=== PATIENT | female | born 1945 | race Caucasian/White ===

== ENCOUNTER → 2020-01-16 11:15 | Outpatient (CLI) | payer MEDICARE, BC, OTHER | END | disposition home or self-care (01) | LOC: D.MAMMO 11:15 | PROVIDERS: ATTEND Family Medicine | DX: Z12.31 Encounter for screening mammogram for malignant neoplasm of breast (principal) ==

== ENCOUNTER 2020-11-13 11:11 | Day surgery (SDC) | payer MEDICARE, BC, OTHER ==
[~2020-11-13] VITALS: Ht 162.6 cm; Wt 81.8 kg
--- NOTE | ~2020-11-13 | OP ---
PATIENT NAME: MEHNAZ THAPA MEDICAL RECORD: [id number] :[birth year] LOCATION:D.CAT ADMISSION DATE: SURGEON: MEGAN MACK MD DATE OF OPERATION: 11/13/2020 PREOPERATIVE DIAGNOSIS: Sick sinus syndrome with pauses. POSTOPERATIVE DIAGNOSIS: Sick sinus syndrome with pauses. PROCEDURE: 1. Left subclavian vein dual lead pacemaker placement. 2. Fluoroscopic interpretation. SURGEON: Megan Mack M.D. COSURGEON: Indio Lambert M.D. REPORT OF OPERATION: The patient's left chest was prepped and draped in sterile fashion. A 20 mL of 1% lidocaine with epinephrine was infused into the surrounding tissues. A transverse incision was made on the left superior lateral chest and a subcutaneous pouch was made over the pectoral fascia. A needle was used to cannulate the patient's left subclavian vein. A guidewire was then advanced. Fluoroscopy was used to note that the wire was in good position advancing into the right heart through the superior vena cava. We then placed a 9 trocar over the wire and then placed the V lead through the trocar. The trocar was then removed and a new 7-Peruvian lead was placed over the wire. The wire and dilator were removed and the atrial lead was then inserted. At this point, Dr. Lambert tried to position the leads, but had a lot of trouble with manipulating the leads since they were going through one hole and there was only one trocar. At this point, we discontinued the leads and left the wire in place and placed a 9-Peruvian trocar over the wire followed by second wire placement through the 9-Peruvian trocar. The 9-Peruvian trocar was then removed and two 7-Peruvian trocars were placed over the indwelling wires. At this point, the atrial and ventricular leads were reinserted and at this point, they rested in the superior vena cava. Dr. Lambert then positioned the leads appropriately in the atrium and ventricle. Once there were noted to be resting in good position then these leads were sutured into place with 2-0 Ti-Cron. There was a significant amount of brisk flowing blood from the puncture sites. I then oversewed the tissues around the leads using a 2-0 chromic and a 3-0 Vicryl and this discontinued the bleeding. The leads were then affixed to the pacemaker. This pacemaker was placed into the subcutaneous pouch and sutured to the pectoral fascia with single interrupted 2-0 Ti-Cron. The wound bed was irrigated out with antibiotic solution. The subcutaneous tissues were reapproximated with interrupted 3-0 Vicryl and the skin was closed with running subcutaneous 5-0 Monocryl. COMPLICATIONS: None. CONDITION: Stable. ANESTHESIA: Local MAC. BLOOD LOSS: 250 mL. TRANSINT:[id number] Voice Confirmation ID: [id number] DOCUMENT ID: [id number] OPERATIVE REPORT [id number] MEHNAZ THAPA CHRISTIAN MD CC: [id number] DICTATION DATE: 11/13/20 1418 [facility] PROJECT MANAGER: 11/14/[address] [facility] 11/13/[address] [address]
--- NOTE | ~2020-11-13 | HEMODYNAMI ---
PATIENT:MEHNAZ THAPA MEDICAL RECORD: [id number] : 49 LOCATION:[facility] ADMISSION DATE: 11/13/20 Generatedon:114:24 Patient name: MEHNAZ THAPA Patient #: [id number] SSN: [id number] : 1945 Date of study: 11/13/2020 Page: Of Hemodynamic Procedure Report Patient Data Patient Demographics Procedure consent was obtained First Name: MEHNAZ Gender: Female Last Name: ELIER : 1945 Middle Initial: S Age: 75 year(s) Patient #: [id number] Race: SSN: [id number] Additional ID: [id number] Contact details [address]: [address] [place] [address] State: [place] City: [place] Zip code: [address] Past Medical History Allergies Allergen Reaction Date Comments Reported Other allergy 11/13/2020 N Admission Admission Data Admission Date: 11/13/2020 Admission Time: 11:11 Arrival Date: 11/13/2020 Arrival Time: 0:00 Admit Source: Other Insurance Payor: Medicare [facility] #: [id number] Height (in.): 64 BSA: 1.87 (m2) Height (cm.): 162.56 BMI: 30.72 (kg/m2) Weight (lbs.): 179 Weight (kg.): 81.19 Lab Results Lab Result Date: 11/13/2020 Lab Result Time: 0:00 Biochemistry Name Units Result Min Max BUN mg/dl 12 --(-*--)-- 7 18 Creatinine mg/dl 1.2 --(---*)-- 0.6 1.3 Procedure Procedure Types Cath Procedure Diagnostic Procedure PPM/ICD PPM Dual Implant Sedation Charges Moderate Sedation 10-24 minutes Moderate Sedation 55-69 minutes Procedure Description Procedure Date Procedure Date: 11/13/2020 Procedure Start Time: 13:17 Procedure Staff Name Function Indio White MD Performing Physician Rios Whitmore MD Assisting physician Denise Bro RT Scrub Lali Gambino RT Monitor Modesto Shelby RN Monitor Indication Bradycardia Procedure Data Cath Procedure Fluoroscopy Diagnostic fluoroscopy Total fluoroscopy Time: 8.5 time: 8.5 min min Diagnostic fluoroscopy Total fluoroscopy dose: dose: 116.35 mGy 116.35 mGy Estimated blood loss: 10 ml Procedure Complications No complications Procedure Medications Medication Administration Route Dosage Oxygen NC 2 l/min Lidocaine 1% added to field 20 Vancomycin I.V.P.B 1 g Vancomycin Topical 1 g Irrigation 0.9% NaCl I.V. Versed I.V. 1 mg Fentanyl I.V. 50 mcg Versed I.V. 1 mg Fentanyl I.V. 50 mcg Versed I.V. 1 mg Versed I.V. 1 mg Fentanyl I.V. 50 mcg 0.9% NaCl I.V. bolus 250 ml Hemodynamics Rest BSA: 1.87 (m2) O2 Consumption: Estimated: 170.98 (ml/min) O2 Consumption indexed : Estimated:91.43 (ml/min/m) Heart Rate: 70 (bpm) Snapshots Pre Cath Intra NCS Post Cath Vital Signs Time Heart Resp SPO2 NIBP (mmHg) Rhythm Pain Sedation Rate (ipm) (%) Status Level (bpm) 13:00:03 76 10 98 152/84(106) NSR 0 (11) 10(A) , No pain 13:04:23 69 10 99 141/73(102) NSR 0 (11) 10(A) , No pain 13:08:41 73 10 98 149/69(118) NSR 0 (11) 10(A) , No pain 13:13:01 70 10 95 132/70(99) NSR 0 (11) 10(A) , No pain 13:17:17 71 10 99 147/65(97) NSR 0 (11) 10(A) , No pain 13:21:37 72 11 98 142/68(109) NSR 0 (11) 10(A) , No pain 13:25:47 78 15 99 128/75(127) NSR 0 (11) 10(A) , No pain 13:43:24 87 10 98 90/65(84) NSR 0 (11) 10(A) , No pain 14:03:41 79 11 100 107/63(86) NSR 0 (11) 10(A) , No pain 14:07:50 88 9 100 105/51(82) NSR 0 (11) 10(A) , No pain 14:13:08 78 10 100 108/55(89) NSR 0 (11) 10(A) , No pain 14:17:16 78 10 100 104/58(84) NSR 0 (11) 10(A) , No pain Medications Time Medication Route Dose Verified Delivered Reason Notes Effective ness by by 12:59:48 Oxygen NC 2 Indio Buffie used for l/min Cindy Bourdeaux election judge 12:59:59 Lidocaine added 20ml Indio Buffie used for 1% to vial Cindy Boudreaux election judge field x 2 13:01:09 Vancomycin I.V.P.B 1 g Indio Buffie used for Cindy Boudreaux election judge 13:01:18 Vancomycin Topical 1 g Indio Buffie used for Irrigation Cindy Boudreaux election judge 13:01:46 0.9% NaCl I.V. kvo Indio Buffie Per ml/hr Cindy Boudreaux RN physician 13:06:28 Versed I.V. 1 mg Indio Buffie for Cindy Boudreaux RN sedation 13:06:35 Fentanyl I.V. 50 Indio Buffie for mcg Cindy Boudreaux RN sedation 13:11:01 Versed I.V. 1 mg Indio Buffie for Cindy Boudreaux RN sedation 13:11:04 Fentanyl I.V. 50 Indio Buffie for mcg Cindy Boudreaux RN sedation 13:17:08 Versed I.V. 1 mg Indio Buffie for Cindy Boudreaux RN sedation 13:26:49 Versed I.V. 1 mg Indio Buffie for Cindy Boudreaux RN sedation 13:27:24 Fentanyl I.V. 50 Indio Buffie for mcg Cindy Boudreaux RN sedation 13:44:24 0.9% NaCl I.V. 250 Indio Buffie Per bolus ml Cindy Boudreaux RN physician Procedure Log Time Note 12:27:09 Informed consent obtained and on chart 12:27:33 Diagnostic Cath Status : Elective 12:28:01 Indication : Bradycardia 12:28:14 Arrival Date: 11/13/2020 12:00:00 AM 12:28:15 Admit Source: Other 12:28:18 Insurance Payor : Medicare 12:28:46 Patient Height : 64 inches 12:28:50 Patient Weight : 179 lbs 12:28:57 ACC Patient presents with Stable Angina CCS Anginal Class 2--Slight limitation of ordinary activity. 12:29:03 Procedure Status PPM/ Gen Change/ Lead Revision/ Temp. 12:29:05 Time tracking: Regular hours (M-F 7:00 - 5:00) 12:29:09 Plan of Care:Hemodynamics will remain stable., Cardiac rhythm will remain stable., Comfort level will be maintained., Respiratory function will remain adequate., Patient/ family verbilizes understanding of procedure., Procedure tolerated without complication., Recovers from procedure without complications.. 12:29:17 H&P Date Dictated: 11/06/2020 Within 30 days and on chart.. 12:29:20 Family in waiting room. 12:29:22 Patient NPO since Midnight. 12:29:31 Patient allergic to Other allergyPCN 12:29:37 Alarms reviewed by R. N. 12:29:37 Sharps counted by scrub and verified by R.N. 12:29:43 Stress Test: no; N/A ? 12:44:12 Gil Boudreaux RN sent for patient. Start room use. 12:45:43 Lab Result : Creatinine 1.2 mg/dl 12:45:43 Lab Result : BUN 12 mg/dl 12:52:41 Patient received from Pre/Post Procedure Room to CCL 3 Alert and oriented. Tansferred to table in Supine position. 12:52:42 Warm blankets applied, and daisy hugger turned on for patient comfort. 12:52:42 Correct patient and procedure confirmed by team. 12:52:43 Correct patient and procedure confirmed by team. 12:52:44 ECG and BP/O2 sat monitors applied to patient. 12:58:58 Baseline sample Acquired. 12:58:58 Vital chart was started 12:59:07 Rhythm: sinus tachycardia 12:59:09 Full Disclosure recording started 12:59:11 Pre-procedure instructions explained to patient. 12:59:12 Pre-op teaching completed and patient verbalized understanding. 12:59:15 Is the patient allergic to Iodine/contrast media? No. 12:59:17 Was the patient premedicated? No 12:59:18 Is patient on blood thinner?No 12:59:19 Patient diabetic? No. 12:59:22 Previous problem with sedation/anesthesia? No ? 12:59:25 Snore? Yes 12:59:26 Sleep apnea? No 12:59:35 Deviated septum? No 12:59:36 Opens mouth fully? Yes 12:59:38 Sticks out tongue? Yes 12:59:41 Airway obstruction? No ? 12:59:45 Dentures? No ? 12:59:48 Oxygen 2 l/min NC was administered by Gil Boudreaux RN; used for procedure; Verbal order read back and verified. 12:59:48 Pre procedure: right dorsailis pedis pulse 2+ Normal; easily identifiable; not easily obliterated 12:59:50 Pre procedure: left dorsailis pedis pulse 2+ Normal; easily identifiable; not easily obliterated 12:59:59 Lidocaine 1% 20ml vial x 2 added to field was administered by Gil Boudreaux RN; used for procedure; Verbal order read back and verified. 13:00:07 IV patent on arrival in right forearm with 0.9% NaCl at KVO. 13:00:11 Lab results completed and on chart. 13:00:17 Left chest area was prepped with chlora-prep and draped in sterile fashion 13:01:09 Vancomycin 1 g I.V.P.B was administered by Gil Boudreaux RN; used for procedure; Verbal order read back and verified. 13:01:18 Vancomycin Irrigation 1 g Topical was administered by Gil Boudreaux RN; used for procedure; Verbal order read back and verified. 13:01:[address] Generator [id number] opened to sterile field. 13:01:46 0.9% NaCl kvo ml/hr I.V. was administered by Gil Boudreaux RN; Per physician; Verbal order read back and verified. 13:02:27 Use device set MARTINA PPM 13:02:28 2-0 Ticron Multipack ([id number]) opened to sterile field. 13:02:28 3-0 Vicryl Single Pack [id number] opened to sterile field. 13:02:29 5-0 Monocryl PS2 [id number] opened to sterile field. 13:02:29 Cautery Tip Mechanical Door Repairer opened to sterile field. 13:02:30 Cautery Pushbutton Pencil opened to sterile field. 13:02:30 Mepilex Dressing (529247) opened to sterile field. 13:02:34 Immobilizer Large opened to sterile field. 13:02:37 Medtronic 4074-52 PPM Lead opened to sterile field. 13:03:28 Medtronic 4574-45 PPM Lead opened to sterile field. 13:04:11 Physician arrived 13:04:12 --------ALL STOP TIME OUT------ 13:04:13 Final Timeout: patient, procedure, and site verified with staff and physician. All members of the team are in agreement. 13:04:15 Left chest site verified by team. 13:04:24 Fire Safety Assessment: A--An alcohol-based skin anteseptic being used preoperatively., E--There are other possible contributors. 13:04:31 Physical assessment completed. ASA score P 2 - A patient with mild systemic disease as per Indio White MD. 13:04:36 Sedation plan: IV Moderate Sedation Medication:Versed, Fentanyl 13:04:50 Medtronic printing supplies sales representative Bernardino Banuelos present for procedure. 13:05:01 Pre sharps counted by scrub and verified by RN: Sutures: 7; Sponges: 5; Stick needles: 2; Skin needles: 2; Blade: 1; Cautery: 1 13:05:03 Grounding pad site Left thigh. 13:05:04 Grounding pad site free from injury. 13:06:28 Versed 1 mg I.V. was administered by Gil Boudreaux RN; for sedation; Verbal order read back and verified. 13:06:35 Fentanyl 50 mcg I.V. was administered by Gli Boudreaux RN; for sedation; Verbal order read back and verified. 13:11:01 Versed 1 mg I.V. was administered by Gil Boudreaux RN; for sedation; Verbal order read back and verified. 13:11:04 Fentanyl 50 mcg I.V. was administered by Gil Boudreaux RN; for sedation; Verbal order read back and verified. 13:11:13 Incision made to left subclavicular area. 13:17:04 Lidocaine 1% was administered to left subclavicular area by Rios Whitmore MD . 13:17:08 Versed 1 mg I.V. was administered by Gil Boudreaux RN; for sedation; Verbal order read back and verified. 13:26:49 Versed 1 mg I.V. was administered by Gil Boudreaux RN; for sedation; Verbal order read back and verified. 13:27:24 Fentanyl 50 mcg I.V. was administered by Gil Boudreaux RN; for sedation; Verbal order read back and verified. 13:28:35 Generator pocket made/opened. 13:28:40 Left subclavian vein accessed with 9Fr Peel Away Sheath. 13:30:46 Ventricular lead inserted and advanced. 13:30:47 Atrial lead inserted and advanced. 13:37:26 Ventricular lead positioned. 13:44:24 0.9% NaCl 250 ml I.V. bolus was administered by Gil Boudreaux RN; Per physician; Verbal order read back and verified. 13:57:53 Atrial lead positioned. 13:57:57 Peel-a-way sheath was split and removed. 13:58:23 Ventricular lead attachment was completed with 2-0 ticron. 13:58:28 Atrial lead attachment was completed with 2-0 ticron. 13:58:35 PPM Dual was attached to lead(s) and inserted into pocket. 13:58:38 Generator was sutured in place with 2-0 ticron. 14:01:27 Device pocket was irrigated with Vancomycin. 14:01:32 Subcutaneous closure was completed with 3-0 vicryl plus. 14:08:08 Skin closure was completed with 5-0 monocryl. 14:08:35 Parameters-- Generator: Mode: DDDR. Lower Rate: 60bpm. Upper Rate: 120bpm. 14:09:04 Parameters--Ventricular P/R Wave: 10.8mV. Current: 0.1mA; Threshold: 0.3V; Impedence: 960OHMS. 14:09:19 Parameters--Atrial P/R Wave: 3.3mV. Current: 2.9mA; Threshold: 1.5V; Impedence: 583OHMS. 14:09:23 Lt Chest incision was dressed with Mepilex dressing. 14:16:57 Procedure ended.(Physican Out) 14:18:04 Fluoroscopy time 08.50 minutes. 14:18:08 Fluoroscopy dose: 116.35 mGy 14:18:08 Flurop Dose total: 116.35 14:18:15 Dose Area Product 1639.85 mGy/cm. 14:18:20 Sharps counted by scrub and verified by R.N. 14:18:22 Insertion/operative site no bleeding no hematoma. 14:18:24 Post Procedure Pulses reassessed and unchanged 14:18:27 Post procedure rhythm: paced 14:18:31 Estimated blood loss: 10 ml 14:19:09 Post procedure instruction explained to patient.Patient verbalizes understanding. 14:19:09 Patient needs reinforcement of post procedure teaching. 14:19:51 Procedure type changed to Cath procedure, Diagnostic procedure, PPM/ICD, PPM Dual Implant, Sedation Charges, Moderate Sedation 10-24 minutes, Moderate Sedation 55-69 minutes 14:19:53 Procedure and supply charges have been captured, reviewed, submitted and are correct. 14:19:59 Procedure Complication : No complications 14:20:02 Vital chart was stopped 14:20:07 Operative report dictated upon procedure completion. 14:20:07 See physician's report for complete and final results. 14:20:09 Report given to Pre/Post Procedure Room. 14:20:11 Patient transfered to Pre/Post Procedure Room with Stretcher. 14:20:26 End room use (Document Last) Device Usage Item Name Manufacture Quantity Catalog Hospital Part Current Minima l Lot# / Number Charge Number Stock Stock Serial# Code Medtronic Medtronic 1 [id number] [id number] [id number] [id number] EXP Generator 04-04-2022 [id number] 2-0 Ticron Ethicon 7 [id number] 62322 001269 5 Multipack ([id number]) 3-0 Vicryl Ethicon 1 [id number] 716997 088122 532000 5 Single Pack [id number] 5-0 Monocryl Ethicon 1 Y495G 388801 348171 155023 5 PS2 Y495G Cautery Tip Microtek 1 [id number] 563411 459293 698990 5 Mechanical Door Repairer [employer] Cautery Microtek 1 [id number] 843141 45414 316649 5 [employer] Pencil Mepilex Cardinal 1 966857 290647 589259 184061 5 [facility] ([id number]) Immobilizer Cardinal 1 [id number] 914552 211681 161967 5 [facility] Medtronic Medtronic 1 4074-52 644740 146256 705377 5 [id number] 4074-52 PPM EXP Lead 07-27-2022 Medtronic Medtronic 1 4574-45 007418 858245 668799 5 [id number] 4574-45 PPM EXP Lead 03-06-2022 Signature Audit [place] Stage Time Signature Unsigned Intra-Procedure 11/13/2020 Lali Gambino 2:22:13 PM RT(R) Intra-Procedure 11/13/2020 Modesto Shelby RN 2:23:48 PM Intra-Procedure 11/13/2020 Indio Longoria 2:24:16 PM Mariano [facility] [address] [place] [address]
[2020-11-13] MEDS ORDERED: ACCUPRIL10 MG PO (11:36)
[2020-11-13] MEDS ORDERED: TRULICITY1.5 MG/0.5 SC (11:36)
[2020-11-13] MEDS ORDERED: HYDROCHLOROTHIA25 MG PO (11:36)
[2020-11-13] MEDS ORDERED: GLUCOPHAGE1000 MG PO (11:37)
[2020-11-13] MEDS ORDERED: TENORMIN25 MG PO (11:37)
[2020-11-13] MEDS ORDERED: GLIPIZIDE10 MG PO (11:37)
[2020-11-13] MEDS ORDERED: BAYER CHEWABLE81 MG PO (11:38)
[2020-11-13] MEDS ORDERED: CRESTOR20 MG PO (11:38)
[2020-11-13] MEDS ORDERED: ACETAMINOPHEN500 M1 PO (11:39)
[2020-11-13] MEDS ORDERED: VITAMIN D325 MC1 PO (11:40)
[2020-11-13 12:00] VITALS: BP 147/63; Ht 162.6 cm; Wt 81.8 kg
[2020-11-13 12:06] LABS: ANION GAP 14.9 mmol/L (8-16); CALCIUM 9.7 mg/dL (8.5-10.1); CARBON DIOXIDE 25.6 mmol/L (21.0-32.0); CREATININE - SERUM 1.2 mg/dL (0.6-1.3); POTASSIUM - SERUM 3.5 mmol/L (3.5-5.1)
[2020-11-13 13:06] LABS: HEMOGLOBIN 14.5 g/dL (12-16); MCH 29.4 pg (26.0-34.0); MEAN PLATELET VOLUME 10.4 fL (7.4-10.4); RBC 4.95 10x6/uL (4.00-5.40); RDW 14.5 % (11.5-14.5); WBC 9.1 10x3/uL (4.8-10.8)
[2020-11-13 13:50] LABS: APTT 23.9 SECONDS (22.8-39.4)
[2020-11-13 13:51] LABS: PROTIME 12.1 SECONDS (11.6-15.0)
[2020-11-13 13:52] LABS: INR 0.99 (0.85-1.17)
--- NOTE | 2020-11-13 14:35 | NUR ---
PT REC'D TO CATH RECOVERY ROOM 8 VIA STRETCHER. MONITORS ESTAB. L ARM IN SLING. AT BS. SEE COMPUTER ANIMATOR FLOWSHEETS. ALARMS ON AND C/L IN REACH.
--- NOTE | 2020-11-13 14:50 | NUR ---
PCXR DONE. PT GIVEN ICE WATER PER REQUEST. L CHEST SITE C/D/I, NO S/S REDNESS OR DRAINAGE. CM - NSR, HR 79, NO ECTOPY NOTED. ALARMS ON AND C/L IN REACH.
--- NOTE | 2020-11-13 15:17 | NUR ---
PCXR RESULTED - WNL. VSS. PRESSURE DSG REMOVED, MEPILEX DSG C/D/I, NO SWELLING, REDNESS OR DRAINAG NOTED. ICE PACK APPLIED PER PT REQUEST. CM - NSR, NO ECTOPY NOTED.
--- NOTE | 2020-11-13 15:41 | NUR ---
ALL DISCHARGE INSTRUCTIONS REVIEWED WITH PT AND , INCLUDING RESTRICTIONS, MEDS AND F/U APPT - BOTH VERBALIZE UNDERSTANDING. PIV D/C'D INTACT, DSG APPLIED. PT ASSISTED UP WITH DRESSING AND ARM SLING. THEN PT TO BR INDEPENDENTLY.
--- NOTE | 2020-11-13 15:48 | NUR ---
PT D/C'D VIA WC TO PRIVATE VEHICLE WITH ALL PAPERWORK AND BELONGINGS
--- NOTE | 2020-11-15 08:19 | OP ---
PATIENT NAME: SONJA THAPA MEDICAL RECORD: [id number] :49 LOCATION:D.CAT ADMISSION DATE: SURGEON: KERVIN REYES MD DATE OF OPERATION: 11/13/2020 PROCEDURE: Lead portion of permanent pacemaker placement on Sonja Thapa. DESCRIPTION OF PROCEDURE: After left subclavian was cannulated via modified Seldinger technique via Dr. Whitmore first under fluoroscopic guidance, I placed the RV lead into the RV apex without difficulty. After adequate thresholds and R waves were obtained down to less than 1. The right atrial lead was placed into the right atrium. We were unable to hook the right atrial appendage; however, we did get thresholds down to 0.9. Leads were attached to the appropriate poles of the generator and the pocket was closed via Dr. Whitmore. IMPRESSION: Successful lead portion of permanent pacemaker placement on Sonja Thapa. ESTIMATED BLOOD LOSS: Minimal. DISPOSITION: To the floor, stable. TRANSINT:[id number] Voice Confirmation ID: [id number] DOCUMENT ID: [id number] KERVIN REYES MD at 0819 CC: [id number] DICTATION DATE: 11/13/20 1404 FACILITIES PLANNER: 11/14/20 0309 [facility] 11/13/20 [facility] [address] [place] [address]
== END 2020-11-13 15:48 | disposition home or self-care (01) ==
LOC: D.CATH 11:11
PROVIDERS: ATTEND Internal Medicine Interventional Cardiology
DX: I49.5 Sick sinus syndrome (principal); I44.1 Atrioventricular block, second degree

== ENCOUNTER → 2020-12-10 19:29 | Outpatient (CLI) | payer MEDICARE, BC, OTHER ==
[2020-11-13 12:00] VITALS: BMI 30.9
[~2020-12-10 19:29] MED LIST: ACCUPRIL10 MG PO; ACETAMINOPHEN500 M1 PO; BAYER CHEWABLE81 MG PO; CRESTOR20 MG PO; GLIPIZIDE10 MG PO; GLUCOPHAGE1000 MG PO; HYDROCHLOROTHIA25 MG PO; TENORMIN25 MG PO; TRULICITY1.5 MG/0.5 SC; VITAMIN D325 MC1 PO
[2020-12-10 19:45] LABS: BASOPHILS 1.3 % (0-2); HEMATOCRIT 41.4 % (36.0-48.0); HEMOGLOBIN 13.4 g/dL (12-16); MCH 29.6 pg (26.0-34.0); MCHC 32.3 g/dL (31.0-37.0); MCV 91.5 fL (80.0-100.0); MEAN PLATELET VOLUME 11.5 fL (7.4-10.4); MONOCYTES 5.7 % (2-11); PLATELET COUNT 467 10x3/uL (130-400); RBC 4.52 10x6/uL (4.00-5.40); RDW 14.8 % (11.5-14.5)
[2020-12-10 19:53] LABS: % SATURATION 11 % (15-55); IRON 47 ug/dl (35-150); TOTAL IRON BIND CAPACITY 421 ug/dl (260-445); UNSAT IRON BIND CAPACITY 374 ug/dl (150-375)
[2020-12-10 20:16] LABS: T4 THYROXIN - FREE 1.02 ng/dL (0.76-1.46); THYROID STIMULATING HORMONE 1.5 uIU/mL (0.36-3.74)
== END | disposition home or self-care (01) ==
LOC: D.LABREF 19:29
PROVIDERS: ATTEND Nurse Practitioner
DX: R00.2 Palpitations (principal); D64.9 Anemia, unspecified